=== PATIENT | female | born 1965 | race Caucasian/White ===

== ENCOUNTER 2019-03-12 18:11 | Emergency (ER) | payer MEDICARE, MEDICAID ==
[~2019-03-12] VITALS: Ht 172.7 cm; Wt 82.0 kg
[~2019-03-12 18:11] MED LIST: CHLO25CA10 PO; DISU500T PO; LORA2TAB96 PO; NEOM10SO7 OT
[2019-03-12 18:18] VITALS: BP 123/82
--- NOTE | 2019-03-12 18:25 | NUR ---
PT TOOK 100 MG BENADRYL APPROX 1.5 HRS AGO.
[2019-03-12] MEDS ORDERED: predniSONE 20 mg tablet PO ONE (18:50)
[2019-03-12] MEDS ORDERED: PRED10TA PO (19:00)
== END 2019-03-12 19:09 | disposition home or self-care (01) ==
LOC: ER 18:12
DX: T78.40XA Allergy, unspecified, initial encounter (principal); L50.9 Urticaria, unspecified; F17.200 Nicotine dependence, unspecified, uncomplicated; Z86.19 Personal history of other infectious and parasitic diseases; Z88.5 Allergy status to narcotic agent; Z79.899 Other long term (current) drug therapy; X58.XXXA Exposure to other specified factors, initial encounter; Y93.89 Activity, other specified; Y92.89 Other specified places as the place of occurrence of the external cause; Y99.8 Other external cause status
CPT/HCPCS: 99283; J7512

== ENCOUNTER 2019-05-23 14:09 | Emergency (ER) | payer MEDICARE, MEDICAID ==
[~2019-05-23] VITALS: Ht 172.7 cm; Wt 72.7 kg
[~2019-05-23 14:09] MED LIST changes: +PRED10TA PO
[2019-05-23 14:25] VITALS: BP 123/83
[2019-05-23] MEDS ORDERED: NO HOME MEDS (15:09)
--- NOTE | 2019-05-23 15:13 | NUR ---
Pt. to room 26 with minor daughter. Pt. states her SO 1.5 years ago and she is about to be homeless as the house they are living in is in probate since her SO did not have a will. Pt. continously states she wants to leave and refuses to change into a gown, provide urine sample etc. Friend is here to potentially take minor child home while pt. stays. Charge Nurse aware that pt. is wanting to leave. to evaluate pt. dianna.
--- NOTE | 2019-05-23 15:16 | NUR ---
Dr. Martinez here to speak with pt.
[2019-05-23] MEDS ORDERED: SERT25TA PO (15:31)
--- NOTE | 2019-05-23 15:45 | NUR ---
Dr. Martinez talked with pt. and wrote discharge instructions and a RX for Zoloft. Pt. to F/U with PMD and [facility] dianna. Pt. left with all belongings in stable condition. Friend Wan to drive pt. and her daughter home.
== END 2019-05-23 15:48 | disposition home or self-care (01) ==
LOC: ER 14:09
DX: F41.9 Anxiety disorder, unspecified (principal); F32.9 Major depressive disorder, single episode, unspecified; Z88.5 Allergy status to narcotic agent; Z79.2 Long term (current) use of antibiotics; Z79.899 Other long term (current) drug therapy
CPT/HCPCS: 99284

== ENCOUNTER 2019-08-22 15:02 | Emergency (ER) | payer MEDICARE, MEDICAID ==
[~2019-08-22] VITALS: Ht 170.2 cm; Wt 72.7 kg
[~2019-08-22 15:02] MED LIST changes: +NO HOME MEDS; +SERT25TA PO
[2019-08-22 15:22] VITALS: BP 126/85
[2019-08-22] MEDS ORDERED: GABA300C PO (15:46)
[2019-08-22] MEDS ORDERED: LORA-269 PO (15:46)
--- NOTE | 2019-08-22 16:07 | NUR ---
[facility] called and it sending an officer to take a statement
--- NOTE | 2019-08-22 18:14 | NUR ---
PT MADE POL[employer] REPORT
== END 2019-08-22 18:17 | disposition home or self-care (01) ==
LOC: ER 15:03
DX: S52.571A Other intraarticular fracture of lower end of right radius, initial encounter for closed fracture (principal); F10.10 Alcohol abuse, uncomplicated; F15.10 Other stimulant abuse, uncomplicated; Z88.5 Allergy status to narcotic agent; Z79.899 Other long term (current) drug therapy; Y04.0XXA Assault by unarmed brawl or fight, initial encounter; Y93.89 Activity, other specified; Y92.89 Other specified places as the place of occurrence of the external cause; Y99.9 Unspecified external cause status; Y90.9 Presence of alcohol in blood, level not specified
CPT/HCPCS: 29125; 73110; 99283

== ENCOUNTER 2019-08-29 14:13 | Emergency (ER) | payer MEDICARE, MEDICAID ==
[~2019-08-29] VITALS: Ht 172.7 cm; Wt 77.3 kg
[~2019-08-29 14:13] MED LIST changes: +GABA300C PO; +LORA-269 PO
[2019-08-29 14:35] VITALS: BP 152/95
== END 2019-08-29 15:14 | disposition home or self-care (01) ==
LOC: ER 14:13
DX: F10.20 Alcohol dependence, uncomplicated (principal); F15.90 Other stimulant use, unspecified, uncomplicated; Z88.5 Allergy status to narcotic agent; Z79.899 Other long term (current) drug therapy; Z86.19 Personal history of other infectious and parasitic diseases; Y90.9 Presence of alcohol in blood, level not specified
CPT/HCPCS: 99281

== ENCOUNTER 2019-09-03 14:18 | Emergency (ER) | payer MEDICARE, MEDICAID ==
[~2019-09-03] VITALS: Ht 172.7 cm; Wt 79.5 kg
[2019-09-03 14:24] VITALS: BP 131/77
== END 2019-09-03 15:32 | disposition home or self-care (01) ==
LOC: ER 14:18
DX: S52.571D Other intraarticular fracture of lower end of right radius, subsequent encounter for closed fracture with routine healing (principal); G89.29 Other chronic pain; F10.20 Alcohol dependence, uncomplicated; Y90.9 Presence of alcohol in blood, level not specified; F15.90 Other stimulant use, unspecified, uncomplicated; Z86.19 Personal history of other infectious and parasitic diseases; Z88.5 Allergy status to narcotic agent; Z79.2 Long term (current) use of antibiotics; Z79.899 Other long term (current) drug therapy; Y04.0XXD Assault by unarmed brawl or fight, subsequent encounter
CPT/HCPCS: 29105; 73110; 99283

== ENCOUNTER 2019-09-09 13:37 | Outpatient (CLI) | payer MEDICARE, MEDICAID ==
[2019-09-09 14:46] LABS: BASOPHILS # (AUTO) 0.1 X10'3 (0-0.2); BASOPHILS % (AUTO) 1.3 % (0-1); EOSINOPHILS # (AUTO) 0.4 X10'3 (0-0.9); EOSINOPHILS % (AUTO) 7.5 % (0-6); HEMATOCRIT 43.7 % (35.0-45.0); HEMOGLOBIN 15.2 g/dl (12.0-16.0); LYMPHOCYTES # (AUTO) 2.3 X10'3 (1.1-4.8); LYMPHOCYTES % (AUTO) 39.7 % (21-51); MEAN CORPUSCULAR HGB CONC 34.8 g/dL (33.0-36.5); MEAN PLATELET VOLUME 7.3 FL (7.4-10.4); MONOCYTES # (AUTO) 0.5 X10'3 (0-0.9); NEUTROPHILS # (AUTO) 2.5 X10'3 (1.8-7.7); NEUTROPHILS % (AUTO) 43.5 % (42-75); PLATELET COUNT 177 X10'3 (140-440); RED CELL DISTRIBUTION WIDTH 13.4 % (11.5-14.5); WHITE BLOOD COUNT 5.8 X10'3 (4.5-11.0)
[2019-09-09 15:12] LABS: ALANINE AMINOTRANSFERASE 68 U/L (12-78); ALBUMIN 3.4 G/DL (3.4-5.0); ALBUMIN/GLOBULIN RATIO 0.8 (1.1-1.5); ALKALINE PHOSPHATASE 113 IU/L (46-116); ANION GAP 5 (8-16); ASPARTATE AMINO TRANSFERASE 54 U/L (10-37); BILIRUBIN,TOTAL 0.5 MG/DL (0.1-1.0); BLOOD UREA NITROGEN 14 MG/DL (7-18); BUN/CREATININE RATIO 16.3 (6.6-38.0); CALCIUM 8.8 MG/DL (8.5-10.1); CHLORIDE 107 MMOL/L (99-107); CREATININE 0.86 MG/DL (0.40-0.90); GLUCOSE 94 MG/DL (70-104); POTASSIUM 4.3 MMOL/L (3.5-5.1); SODIUM 141 MMOL/L (135-145); TOTAL CARBON DIOXIDE 28.6 MMOL/L (24-32); TOTAL PROTEIN 7.6 G/DL (6.4-8.2); eGFR 69 ML/MIN
[2019-09-11 11:26] LABS: RPR Non Reactive (Non Reactive)
== END 2019-09-09 23:59 | disposition home or self-care (01) ==
LOC: LAB 13:37
PROVIDERS: ATTEND Physician Assistant
DX: F43.12 Post-traumatic stress disorder, chronic (principal); F10.20 Alcohol dependence, uncomplicated; B19.20 Unspecified viral hepatitis C without hepatic coma; Z72.51 High risk heterosexual behavior; Z79.899 Other long term (current) drug therapy; Z88.5 Allergy status to narcotic agent
CPT/HCPCS: 36415; 80053; 82607; 82746; 84443; 85025; 86592

== ENCOUNTER 2019-10-06 15:53 | Outpatient (CLI) | payer MEDICARE, MEDICAID | END 2019-10-06 16:51 | disposition home or self-care (01) | LOC: ORTHO 15:53 | PROVIDERS: ATTEND Orthopaedic Surgery | DX: S52.501A Unspecified fracture of the lower end of right radius, initial encounter for closed fracture (principal); X58.XXXA Exposure to other specified factors, initial encounter; Y93.89 Activity, other specified; Y92.89 Other specified places as the place of occurrence of the external cause; Y99.8 Other external cause status | CPT/HCPCS: 73110; G0463 ==

== ENCOUNTER 2020-01-31 10:09 | Emergency (ER) | payer MEDICARE, MEDICAID ==
[~2020-01-31] VITALS: Ht 172.7 cm; Wt 77.2 kg
[2020-01-31 11:20] LABS: BASOPHILS % (AUTO) 0.3 % (0-1); EOSINOPHILS % (AUTO) 0.3 % (0-6); HEMATOCRIT 43.9 % (35.0-45.0); HEMOGLOBIN 14.9 g/dl (12.0-16.0); LYMPHOCYTES # (AUTO) 1.2 X10'3 (1.1-4.8); LYMPHOCYTES % (AUTO) 9.6 % (21-51); MEAN CORPUSCULAR HEMOGLOBIN 32.7 PG (27.0-31.0); MEAN CORPUSCULAR HGB CONC 33.9 g/dL (33.0-36.5); MEAN CORPUSCULAR VOLUME 96.6 FL (78-98); MONOCYTES # (AUTO) 1.3 X10'3 (0-0.9); NEUTROPHILS % (AUTO) 79.8 % (42-75); PLATELET COUNT 151 X10'3 (140-440); RED BLOOD COUNT 4.55 X10'6 (4.20-5.60); RED CELL DISTRIBUTION WIDTH 14.3 % (11.5-14.5); WHITE BLOOD COUNT 12.5 X10'3 (4.5-11.0)
[2020-01-31] MEDS ORDERED: LORazepam 2 mg/ml vial IV ONE (11:25)
[2020-01-31] MEDS ORDERED: chlordiazePOXIDE 25mg capsule PO ONE (11:25)
[2020-01-31] MEDS ORDERED: normal saline 1000ML IV soln IVB ONE ×2 (11:25→13:15)
[2020-01-31 11:36] LABS: ALANINE AMINOTRANSFERASE 42 U/L (12-78); ALBUMIN 2.4 G/DL (3.4-5.0); ALBUMIN/GLOBULIN RATIO 0.5 (1.1-1.5); ALKALINE PHOSPHATASE 101 IU/L (46-116); ANION GAP 7 (8-16); ASPARTATE AMINO TRANSFERASE 44 U/L (10-37); BILIRUBIN,TOTAL 1.2 MG/DL (0.1-1.0); BLOOD UREA NITROGEN 10 MG/DL (7-18); CALCIUM 8.9 MG/DL (8.5-10.1); CHLORIDE 97 MMOL/L (99-107); CREATININE 0.91 MG/DL (0.40-0.90); GLUCOSE 158 MG/DL (70-104); LIPASE 68 U/L (73-393); POTASSIUM 3.9 MMOL/L (3.5-5.1); SODIUM 128 MMOL/L (135-145); TOTAL CARBON DIOXIDE 24.3 MMOL/L (24-32); TOTAL PROTEIN 7.6 G/DL (6.4-8.2); eGFR 65 ML/MIN
[2020-01-31 12:02] LABS: ETHANOL 0.014 GM/DL (0.0-0.010)
[2020-01-31] MEDS ORDERED: CHLO25CA10 PO (14:17)
[2020-01-31] MEDS ORDERED: GABA-532 PO (14:17)
[2020-01-31] MEDS ORDERED: magnesium oxide 400mg tablet PO ONE (14:50)
[2020-01-31] MEDS ORDERED: phenobarbital inj 260 MG in normal saline 100ml IV soln 100 ML IV ONE (14:50)
[2020-01-31] MEDS ORDERED: thiamine 100mg tablet PO ONE (14:50)
[2020-01-31 15:24] LABS: URINE AMPHETAMINE SCREEN POSITIVE (Neg); URINE BARBITUATE SCREEN NEGATIVE (Neg); URINE BENZODIAZEPINES SCREEN NEGATIVE (Neg); URINE CANNABINOID SCREEN NEGATIVE (Neg); URINE COCAINE SCREEN NEGATIVE (Neg); URINE METHADONE SCREEN NEGATIVE (Neg); URINE OPIATE SCREEN NEGATIVE (Neg); URINE PHENCYCLIDINE SCREEN NEGATIVE (Neg)
[2020-01-31] MEDS ORDERED: phenobarbital inj 130 MG in normal saline 100ml IV soln 100 ML IV ONE ×2 (16:20→17:20)
[2020-01-31 17:55] VITALS: BP 125/77
== END 2020-01-31 18:22 | disposition home or self-care (01) ==
LOC: ER 10:10
DX: F10.230 Alcohol dependence with withdrawal, uncomplicated (principal); F15.90 Other stimulant use, unspecified, uncomplicated; R19.7 Diarrhea, unspecified; F17.200 Nicotine dependence, unspecified, uncomplicated; Z88.5 Allergy status to narcotic agent; Z79.899 Other long term (current) drug therapy; Y90.9 Presence of alcohol in blood, level not specified
CPT/HCPCS: 36415; 80053; 80305; 80320; 83690; 85025; 93005; 96361; 96365; 96366; 96375; 96376; 99285; J2060; J2560; J7030

== ENCOUNTER 2021-04-14 13:17 | Emergency (ER) | payer MEDICARE, MEDICAID ==
[~2021-04-14] VITALS: Ht 172.7 cm; Wt 70.8 kg
[~2021-04-14 13:17] MED LIST changes: -CHLO25CA10 PO; -DISU500T PO; -GABA300C PO; -LORA-269 PO; -LORA2TAB96 PO; -NEOM10SO7 OT; -PRED10TA PO; -SERT25TA PO
[2021-04-14 13:22] VITALS: BP 127/94
== END 2021-04-14 16:45 | disposition left against medical advice (07) ==
LOC: ER 13:18
DX: F10.10 Alcohol abuse, uncomplicated (principal); Z53.21 Procedure and treatment not carried out due to patient leaving prior to being seen by health care provider

== ENCOUNTER 2021-05-31 08:52 | Emergency (ER) | payer MEDICARE, MEDICAID ==
[~2021-05-31] VITALS: Ht 172.7 cm; Wt 73.9 kg
[2021-05-31 09:02] VITALS: BP 134/87
[2021-05-31] MEDS ORDERED: GABA-534 PO (09:18)
== END 2021-05-31 09:32 | disposition home or self-care (01) ==
LOC: ER 08:52
DX: F10.10 Alcohol abuse, uncomplicated (principal); F15.90 Other stimulant use, unspecified, uncomplicated; Z72.89 Other problems related to lifestyle; Z88.5 Allergy status to narcotic agent; Y90.9 Presence of alcohol in blood, level not specified
CPT/HCPCS: 99283

== ENCOUNTER 2021-11-10 11:57 | Emergency (ER) | payer MEDICAID, MEDICARE ==
[~2021-11-10] VITALS: Ht 167.6 cm; Wt 72.7 kg
[~2021-11-10 11:57] MED LIST changes: +GABA-534 PO
[2021-11-10 12:17] VITALS: BP 116/74
[2021-11-10 14:12] LABS: BASOPHILS % (AUTO) 0.6 % (0-1); EOSINOPHILS # (AUTO) 0.2 X10'3 (0-0.9); EOSINOPHILS % (AUTO) 3.8 % (0-6); HEMOGLOBIN 15.4 g/dl (12.0-16.0); LYMPHOCYTES # (AUTO) 2.1 X10'3 (1.1-4.8); LYMPHOCYTES % (AUTO) 35.8 % (21-51); MEAN CORPUSCULAR HGB CONC 34.2 g/dL (33.0-36.5); MEAN CORPUSCULAR VOLUME 99.4 FL (78-98); MEAN PLATELET VOLUME 6.9 FL (7.4-10.4); MONOCYTES # (AUTO) 0.5 X10'3 (0-0.9); MONOCYTES % (AUTO) 9.4 % (2-12); NEUTROPHILS # (AUTO) 2.9 X10'3 (1.8-7.7); NEUTROPHILS % (AUTO) 50.4 % (42-75); PLATELET COUNT 164 X10'3 (140-440); RED BLOOD COUNT 4.53 X10'6 (4.20-5.60); RED CELL DISTRIBUTION WIDTH 13.2 % (11.5-14.5); WHITE BLOOD COUNT 5.8 X10'3 (4.5-11.0)
[2021-11-10 14:19] LABS: ALANINE AMINOTRANSFERASE 128 U/L (12-78); ALBUMIN/GLOBULIN RATIO 0.7 (1.1-1.5); ALKALINE PHOSPHATASE 124 IU/L (46-116); ANION GAP 9 (8-16); ASPARTATE AMINO TRANSFERASE 156 U/L (10-37); BILIRUBIN,TOTAL 0.6 MG/DL (0.1-1.0); BLOOD UREA NITROGEN 8 MG/DL (7-18); BUN/CREATININE RATIO 11.8 (6.6-38.0); CALCIUM 8.9 MG/DL (8.5-10.1); CHLORIDE 107 MMOL/L (99-107); CREATININE 0.68 MG/DL (0.40-0.90); ETHANOL 0.077 GM/DL (0.0-0.010); MAGNESIUM 1.8 MG/DL (1.5-2.4); POTASSIUM 3.4 MMOL/L (3.5-5.1); SODIUM 141 MMOL/L (135-145); TOTAL CARBON DIOXIDE 24.9 MMOL/L (24-32); TOTAL PROTEIN 7.6 G/DL (6.4-8.2); eGFR 90 ML/MIN
[2021-11-10 14:20] LABS: GLUCOSE 123 MG/DL (70-104)
[2021-11-10] MEDS ORDERED: CHLO25CA10 PO (14:34)
[2021-11-10] MEDS ORDERED: PROM12.512 PO (14:34)
[2021-11-10] MEDS ORDERED: magnesium oxide 400mg tablet PO ONE (14:45)
[2021-11-10] MEDS ORDERED: potassium Cl 20 mEq SR tablet PO ONE (14:45)
[2021-11-10] MEDS ORDERED: ketorolac tromethamine 15mg/ml inj. IM ONE (14:45)
[2021-11-10] MEDS ORDERED: folic acid 1mg tablet PO ONE (14:45)
[2021-11-10] MEDS ORDERED: thiamine 100mg tablet PO ONE (14:45)
[2021-11-10] MEDS ORDERED: chlordiazePOXIDE 25mg capsule PO ONE (14:45)
[2021-11-10 15:47] LABS: URINE AMPHETAMINE SCREEN POSITIVE (Neg); URINE BARBITUATE SCREEN NEGATIVE (Neg); URINE BENZODIAZEPINES SCREEN NEGATIVE (Neg); URINE CANNABINOID SCREEN POSITIVE (Neg); URINE COCAINE SCREEN NEGATIVE (Neg); URINE METHADONE SCREEN NEGATIVE (Neg); URINE OPIATE SCREEN NEGATIVE (Neg); URINE PHENCYCLIDINE SCREEN NEGATIVE (Neg)
== END 2021-11-10 16:21 | disposition home or self-care (01) ==
LOC: ER 11:58
DX: S70.01XA Contusion of right hip, initial encounter (principal); R74.01 Elevation of levels of liver transaminase levels; F12.10 Cannabis abuse, uncomplicated; Z87.81 Personal history of (healed) traumatic fracture; Z88.5 Allergy status to narcotic agent; Z79.899 Other long term (current) drug therapy; W19.XXXD Unspecified fall, subsequent encounter; Y93.89 Activity, other specified; Y92.89 Other specified places as the place of occurrence of the external cause; Y99.8 Other external cause status
CPT/HCPCS: 36415; 73521; 80053; 80305; 80320; 83735; 85025; 96372; 99284; J1885

== ENCOUNTER 2021-12-31 01:07 | Emergency (ER) | payer MEDICARE, MEDICAID ==
[~2021-12-31] VITALS: Ht 172.7 cm; Wt 74.1 kg
[~2021-12-31 01:07] MED LIST changes: +CHLO25CA10 PO; +PROM12.512 PO
[2021-12-31 01:12] VITALS: BP 143/96
[2021-12-31] MEDS ORDERED: cephalexin 250mg capsule PO ONE (02:35)
[2021-12-31] MEDS ORDERED: SULF1TAB49 PO (02:35)
[2021-12-31] MEDS ORDERED: sulfamethoxazole/trimethoprim DS (800/160mg) tablet PO ONE (02:35)
[2021-12-31] MEDS ORDERED: CEPH-585 PO (02:35)
[2021-12-31] MEDS ORDERED: ibuprofen tablet 400 MG TABLET PO ONE (02:40)
[2021-12-31] MEDS ORDERED: acetaminophen 325mg tablet PO ONE (02:40)
== END 2021-12-31 02:57 | disposition home or self-care (01) ==
LOC: ER 01:08
DX: L03.115 Cellulitis of right lower limb (principal); L03.113 Cellulitis of right upper limb; F19.10 Other psychoactive substance abuse, uncomplicated; F15.90 Other stimulant use, unspecified, uncomplicated; Z72.89 Other problems related to lifestyle; Z86.19 Personal history of other infectious and parasitic diseases; Z87.81 Personal history of (healed) traumatic fracture; Z88.8 Allergy status to other drugs, medicaments and biological substances; Z79.2 Long term (current) use of antibiotics; Z79.899 Other long term (current) drug therapy
CPT/HCPCS: 99284

== ENCOUNTER 2022-03-07 15:09 | Emergency (ER) | payer MEDICARE, MEDICAID ==
[~2022-03-07] VITALS: Ht 172.7 cm; Wt 77.0 kg
[~2022-03-07 15:09] MED LIST changes: +CEPH-585 PO
[2022-03-07 15:20] VITALS: BP 119/82
[2022-03-07] MEDS ORDERED: GABA-530 PO (16:47)
== END 2022-03-07 17:14 | disposition home or self-care (01) ==
LOC: ER 15:10
DX: F10.10 Alcohol abuse, uncomplicated (principal); F15.10 Other stimulant abuse, uncomplicated; Z88.5 Allergy status to narcotic agent
CPT/HCPCS: 99283

== ENCOUNTER 2025-05-26 08:18 | Outpatient (CLI) | payer MEDICARE, MEDICAID ==
[~2025-05-26 08:18] MED LIST changes: -CEPH-585 PO; +GABA-530 PO; -GABA-534 PO; +GABA-535 PO
--- NOTE | 2025-05-26 12:43 | RADIOLOGY REPORT ---
INDICATION: ALCOHOLIC CIRRHOSIS OF LIVER WITHOUT ASCITES TECHNIQUE: Multiple real-time sonographic images of the abdomen were obtained. COMPARISON: None FINDINGS: The liver is increased in echogenicity. The liver measures 16.7 cm. Liver surface appears s mooth. No intrahepatic biliary ductal dilatation is noted. The gallbladder is surgically absent. The right kidney measures 9.8 cm. No hydronephrosis. The left kidney measures 10.0 cm. No hydroneph rosis. The spleen measures 12.4 cm, within normal limits. The echogenicity is within normal limits. The pancreas is not well visualized due to obscuration from bowel gas. The abdominal aorta is obscured. Visualized IVC is unremarkable. IMPRESSION: 1. Cholecystectomy. 2. No acute process. 3. Hepatic steatosis. No sonographic evidence to suggest cirrhosis.
== END 2025-05-26 23:59 | disposition home or self-care (01) ==
LOC: RAD 08:18
PROVIDERS: ATTEND Family Medicine
DX: K76.0 Fatty (change of) liver, not elsewhere classified (principal); K70.30 Alcoholic cirrhosis of liver without ascites; Z90.49 Acquired absence of other specified parts of digestive tract; I70.0 Atherosclerosis of aorta
CPT/HCPCS: 76700

== ENCOUNTER 2025-07-26 08:06 | Outpatient (CLI) | payer MEDICARE, MEDICAID ==
--- NOTE | 2025-07-26 15:42 | RADIOLOGY REPORT ---
PROCEDURE: MR MRI ORBITS FACE AND NECK Indication: LOCALIZED SWELLING, MASS AND LUMP, NECK COMPARISON: None TECHNIQUE: Multiplanar multisequence images of the neck are obtained without contrast. FINDINGS: In the region of the posterior neck marker, no soft tissue masses identified. This is approximately the level of the C2/C3 vertebral body level. Parotid, cyber [employer] and parapharyngeal spaces are preserved. Left orbital lens absent. Mucosal thickening ethmoids. Right maxillary sinus mucosal retention cyst/ polyp measuring 1.2 cm. No mastoid effusion. Submandibular glands unremarkable. Nasopharynx, oropharynx, hypopharynx patent. IMPRESSION: No neck mass identified in the region of the posterior neck marker at the level of the C2/C3 vertebral body level.
== END 2025-07-26 23:59 | disposition home or self-care (01) ==
LOC: MRI02 08:06
PROVIDERS: ATTEND Family Medicine
DX: R22.1 Localized swelling, mass and lump, neck (principal); J34.89 Other specified disorders of nose and nasal sinuses
CPT/HCPCS: 70540